=== PATIENT | female | born 1965 | race Hispanic/Latino ===

== ENCOUNTER 2021-08-13 03:07 | Inpatient (IN) | payer OTHER ==
[~2021-08-13] VITALS: Ht 152.4 cm; Wt 66.7 kg
[2021-08-13 03:35] LABS: BASOPHILS # (AUTO) 0.1 (0.0-0.1); BASOPHILS % 0.5 % (0.0-1.0); EOSINOPHILS % 0.2 % (0.0-6.0); HEMATOCRIT 44.3 % (34.2-44.1); HEMOGLOBIN 14.3 g/dL (12.0-16.0); LYMPHOCYTES # (AUTO) 1.6 (1.0-3.2); LYMPHOCYTES % 8.1 % (18.0-39.1); MEAN CORPUSCULAR HEMOGLOBIN 30.9 pg (28-32); MEAN CORPUSCULAR HGB CONC 32.3 g/dL (31-35); MEAN CORPUSCULAR VOLUME 95.7 fL (81-99); MONOCYTES # (AUTO) 0.7 (0.2-0.8); MONOCYTES % 3.6 % (4.4-11.3); NEUTROPHILS # (AUTO) 17.6 (2.1-6.9); NEUTROPHILS % 86.9 % (38.7-80.0); PLATELET COUNT 340 x10e3/uL (140-360); RED BLOOD COUNT 4.63 x10e6/uL (3.6-5.1); RED CELL DISTRIBUTION WIDTH 13.4 % (11.7-14.4)
[2021-08-13] MEDS ORDERED: DIGOXIN INJ 0.25 MG/ML 2 ML AMP IV ONE (03:45)
[2021-08-13 03:52] LABS: ALBUMIN 3.5 g/dL (3.5-5.0); ALBUMIN/GLOBULIN RATIO 0.9 (0.8-2.0); ANION GAP 20.7 mmol/L (8-16); CALCIUM 9.1 mg/dL (8.4-10.2); CREATININE, SERUM 0.87 mg/dL (0.57-1.11); POTASSIUM 3.7 mmol/L (3.5-5.1)
[2021-08-13] MEDS ORDERED: DIGOXIN INJ 0.25 MG/ML 2 ML AMP ONE (03:53)
[2021-08-13 03:59] LABS: B-TYPE NATRIURETIC PEPTIDE2 417.4 pg/mL (0-100); CREATINE KINASE MB 1.8 ng/mL (0-5.0)
[2021-08-13] MEDS ORDERED: CEFTRIAXONE 2 GM in SODIUM CHLORIDE 0.9% 100 ML IV ONE (04:00)
[2021-08-13] MEDS ORDERED: DEXAMETHASONE SOD PHOS 10 MG/1 ML VIAL IV ONE (04:00)
[2021-08-13 04:02] LABS: ABG PH 7.39 (7.35-7.45)
[2021-08-13 04:03] LABS: ABG HCO3 22 mmol/L (22-26); ABG PCO2 36 mmHg (35-45); ABG PO2 92 mmHg (80-105); ABG TCO2 23
[2021-08-13] MEDS ORDERED: DEXTROSE 50% SYRINGE 50 ML IV PRN (04:30)
[2021-08-13] MEDS ORDERED: ONDANSETRON HCL INJ 2MG/ML 2ML 2 MG/ML VIAL IV PRN (04:30)
[2021-08-13] MEDS ORDERED: SODIUM CHLORIDE FLUSH 10 ML SYR INJ PRN (04:30)
[2021-08-13] MEDS ORDERED: ACETAMINOPHEN 325 MG TAB PO PRN (04:30)
[2021-08-13] MEDS ORDERED: IOPAMIDOL 370 MG/ML 200 ML INFUS..BTL INJ ONE (05:43)
[2021-08-13] MEDS ORDERED: SODIUM CHLORIDE 0.9% 50ML 50 ML ONE (05:43)
[2021-08-13] MEDS: ASCORBIC ACID 500 MG TAB PO SCH ×2 (07:52→16:58)
[2021-08-13] MEDS: CEFTRIAXONE 2 GM in SODIUM CHLORIDE 0.9% 100 ML IV SCH (07:52)
[2021-08-13] MEDS: ZINC SULFATE 50 MG CAP PO SCH (07:52)
[2021-08-13] MEDS: DEXAMETHASONE SOD PHOS 10 MG/1 ML VIAL IV SCH (07:52)
[2021-08-13] MEDS: INSULIN REGULAR, HUMAN 100 UNIT/1 ML SQ SCH ×4 (07:58→20:52)
[2021-08-13] MEDS ORDERED: ENOXAPARIN SOD INJ 40 MG/0.4 ML SYR SC SCH (09:00)
[2021-08-13 09:09] LABS: BASOPHILS % 0.3 % (0.0-1.0); HEMOGLOBIN 13.7 g/dL (12.0-16.0); LYMPHOCYTES # (AUTO) 0.5 (1.0-3.2); LYMPHOCYTES % 3.4 % (18.0-39.1); MEAN CORPUSCULAR HEMOGLOBIN 30.8 pg (28-32); MEAN CORPUSCULAR HGB CONC 31.9 g/dL (31-35); MEAN CORPUSCULAR VOLUME 96.6 fL (81-99); MONOCYTES # (AUTO) 0.2 (0.2-0.8); MONOCYTES % 1.8 % (4.4-11.3); NEUTROPHILS # (AUTO) 12.5 (2.1-6.9); PLATELET COUNT 258 x10e3/uL (140-360); RED BLOOD COUNT 4.45 x10e6/uL (3.6-5.1); RED CELL DISTRIBUTION WIDTH 13.5 % (11.7-14.4)
[2021-08-13 09:39] LABS: ALBUMIN 3.2 g/dL (3.5-5.0); ANION GAP 14.7 mmol/L (8-16); CALCIUM 8.8 mg/dL (8.4-10.2); CREATININE, SERUM 0.75 mg/dL (0.57-1.11); POTASSIUM 3.7 mmol/L (3.5-5.1)
[2021-08-13] MEDS ORDERED: REMDESIVIR 100MG 200 MG in SODIUM CHLORIDE 0.9% 100 ML IV SCH (12:00)
[2021-08-13] MEDS ORDERED: GUAIFENESIN/CODEINE 5 ML LIQD PO PRN (15:30)
[2021-08-13] MEDS ORDERED: ASCORBIC ACID 500 MG TAB PO SCH (17:00)
[2021-08-13 18:18] LABS: CREATINE KINASE MB 18.3 ng/mL (0-5.0)
[2021-08-13] MEDS: ENOXAPARIN 30 MG/0.3 ML SYR SC SCH (20:51)
[2021-08-13] MEDS: INSULIN GLARGINE 100 UNITS/ML VIAL SQ SCH (20:52)
[2021-08-13] MEDS ORDERED: ZOLPIDEM TARTRATE 5 MG TAB PO PRN (21:00)
[2021-08-13 23:27] LABS: CREATINE KINASE MB 13.4 ng/mL (0-5.0)
[2021-08-14] VITALS (7 sets, daily range): BP systolic 112–142; BP diastolic 82–87
[2021-08-14 05:14] LABS: BASOPHILS # (AUTO) 0.1 (0.0-0.1); BASOPHILS % 0.6 % (0.0-1.0); EOSINOPHILS % 0.3 % (0.0-6.0); HEMATOCRIT 37.9 % (34.2-44.1); HEMOGLOBIN 12.1 g/dL (12.0-16.0); LYMPHOCYTES # (AUTO) 1.9 (1.0-3.2); LYMPHOCYTES % 18.4 % (18.0-39.1); MEAN CORPUSCULAR HEMOGLOBIN 30.6 pg (28-32); MEAN CORPUSCULAR HGB CONC 31.9 g/dL (31-35); MEAN CORPUSCULAR VOLUME 95.7 fL (81-99); MONOCYTES # (AUTO) 0.5 (0.2-0.8); MONOCYTES % 4.9 % (4.4-11.3); NEUTROPHILS # (AUTO) 7.9 (2.1-6.9); NEUTROPHILS % 75.4 % (38.7-80.0); PLATELET COUNT 217 x10e3/uL (140-360); RED BLOOD COUNT 3.96 x10e6/uL (3.6-5.1); RED CELL DISTRIBUTION WIDTH 13.4 % (11.7-14.4)
[2021-08-14 06:03] LABS: ALBUMIN 3.1 g/dL (3.5-5.0); ANION GAP 15.1 mmol/L (8-16); CALCIUM 9.2 mg/dL (8.4-10.2); CREATININE, SERUM 0.67 mg/dL (0.57-1.11); POTASSIUM 3.1 mmol/L (3.5-5.1)
[2021-08-14 06:47] LABS: CREATINE KINASE MB 6.9 ng/mL (0-5.0)
[2021-08-14] MEDS: INSULIN REGULAR, HUMAN 100 UNIT/1 ML SQ SCH ×4 (07:30→21:34)
[2021-08-14] MEDS ORDERED: SODIUM CHLORIDE 0.9% 250ML 250 ML ONE (08:11)
[2021-08-14] MEDS ORDERED: ZINC SULFATE 50 MG CAP PO SCH (09:00)
[2021-08-14] MEDS: DEXAMETHASONE SOD PHOS 10 MG/1 ML VIAL IV SCH (09:40)
[2021-08-14] MEDS: ZINC SULFATE 50 MG CAP PO SCH (09:40)
[2021-08-14] MEDS: CEFTRIAXONE 2 GM in SODIUM CHLORIDE 0.9% 100 ML IV SCH (09:40)
[2021-08-14] MEDS: ASPIRIN 81 MG ENTERIC COATED PO SCH (09:40)
[2021-08-14] MEDS: ENOXAPARIN 30 MG/0.3 ML SYR SC SCH ×2 (09:40→21:35)
[2021-08-14] MEDS: ASCORBIC ACID 500 MG TAB PO SCH ×2 (09:40→16:33)
[2021-08-14] MEDS ORDERED: POTASSIUM CHLORIDE 20 MEQ TAB CR PO ONE (10:00)
[2021-08-14 10:36] LABS: CHOL/HDL RATIO 6.1 (3.0-3.6)
[2021-08-14] MEDS: REMDESIVIR 100MG 100 MG in SODIUM CHLORIDE 0.9% 100 ML IV SCH (12:39)
[2021-08-14] MEDS: METOPROLOL TARTRATE 25 MG TAB PO SCH ×2 (12:39→16:33)
[2021-08-14] MEDS: INSULIN GLARGINE 100 UNITS/ML VIAL SQ SCH (21:35)
[2021-08-14] MEDS: ATORVASTATIN 40 MG TAB PO SCH (21:35)
[2021-08-15] VITALS (8 sets, daily range): BP systolic 123–138; BP diastolic 71–82
[2021-08-15] MEDS: AZITHROMYCIN 250 MG TAB PO SCH (06:09)
[2021-08-15 06:30] LABS: BASOPHILS # (AUTO) 0.1 (0.0-0.1); BASOPHILS % 0.5 % (0.0-1.0); EOSINOPHILS % 0.3 % (0.0-6.0); HEMATOCRIT 38.7 % (34.2-44.1); HEMOGLOBIN 12.2 g/dL (12.0-16.0); LYMPHOCYTES # (AUTO) 2.4 (1.0-3.2); LYMPHOCYTES % 21.7 % (18.0-39.1); MEAN CORPUSCULAR HEMOGLOBIN 30.7 pg (28-32); MEAN CORPUSCULAR HGB CONC 31.5 g/dL (31-35); MEAN CORPUSCULAR VOLUME 97.5 fL (81-99); MONOCYTES # (AUTO) 0.8 (0.2-0.8); MONOCYTES % 7.4 % (4.4-11.3); NEUTROPHILS # (AUTO) 7.7 (2.1-6.9); NEUTROPHILS % 69.6 % (38.7-80.0); PLATELET COUNT 229 x10e3/uL (140-360); RED BLOOD COUNT 3.97 x10e6/uL (3.6-5.1); RED CELL DISTRIBUTION WIDTH 13.3 % (11.7-14.4)
[2021-08-15 07:02] LABS: ALBUMIN 3.1 g/dL (3.5-5.0); ANION GAP 12.5 mmol/L (8-16); CREATININE, SERUM 0.57 mg/dL (0.57-1.11); POTASSIUM 3.5 mmol/L (3.5-5.1)
[2021-08-15] MEDS: INSULIN REGULAR, HUMAN 100 UNIT/1 ML SQ SCH ×4 (07:30→21:17)
[2021-08-15] MEDS: ASPIRIN 81 MG ENTERIC COATED PO SCH (09:21)
[2021-08-15] MEDS: DEXAMETHASONE SOD PHOS 10 MG/1 ML VIAL IV SCH (09:21)
[2021-08-15] MEDS: ZINC SULFATE 50 MG CAP PO SCH (09:21)
[2021-08-15] MEDS: ASCORBIC ACID 500 MG TAB PO SCH ×2 (09:21→17:18)
[2021-08-15] MEDS: ENOXAPARIN 30 MG/0.3 ML SYR SC SCH ×2 (09:21→21:09)
[2021-08-15] MEDS: METOPROLOL TARTRATE 25 MG TAB PO SCH ×2 (09:21→17:19)
[2021-08-15] MEDS: CEFTRIAXONE 2 GM in SODIUM CHLORIDE 0.9% 100 ML IV SCH (09:31)
[2021-08-15] MEDS: REMDESIVIR 100MG 100 MG in SODIUM CHLORIDE 0.9% 100 ML IV SCH (12:09)
[2021-08-15] MEDS: ATORVASTATIN 40 MG TAB PO SCH (21:09)
[2021-08-15] MEDS: INSULIN GLARGINE 100 UNITS/ML VIAL SQ SCH (21:18)
[2021-08-16 04:00] VITALS: BP 120/71
[2021-08-16] MEDS: AZITHROMYCIN 250 MG TAB PO SCH (05:54)
[2021-08-16] MEDS: INSULIN REGULAR, HUMAN 100 UNIT/1 ML SQ SCH ×4 (07:30→21:15)
[2021-08-16 08:10] LABS: BASOPHILS # (AUTO) 0.1 (0.0-0.1); BASOPHILS % 0.7 % (0.0-1.0); EOSINOPHILS % 0.2 % (0.0-6.0); HEMATOCRIT 38.9 % (34.2-44.1); HEMOGLOBIN 12.5 g/dL (12.0-16.0); LYMPHOCYTES # (AUTO) 2.4 (1.0-3.2); LYMPHOCYTES % 23.2 % (18.0-39.1); MEAN CORPUSCULAR HEMOGLOBIN 30.5 pg (28-32); MEAN CORPUSCULAR HGB CONC 32.1 g/dL (31-35); MEAN CORPUSCULAR VOLUME 94.9 fL (81-99); MONOCYTES # (AUTO) 0.7 (0.2-0.8); MONOCYTES % 6.4 % (4.4-11.3); NEUTROPHILS # (AUTO) 7.2 (2.1-6.9); NEUTROPHILS % 68.8 % (38.7-80.0); PLATELET COUNT 239 x10e3/uL (140-360); RED CELL DISTRIBUTION WIDTH 13.2 % (11.7-14.4)
[2021-08-16] MEDS: DEXAMETHASONE SOD PHOS 10 MG/1 ML VIAL IV SCH (08:23)
[2021-08-16] MEDS: ASPIRIN 81 MG ENTERIC COATED PO SCH (08:23)
[2021-08-16] MEDS: METOPROLOL TARTRATE 25 MG TAB PO SCH ×2 (08:23→17:31)
[2021-08-16] MEDS: ZINC SULFATE 50 MG CAP PO SCH (08:23)
[2021-08-16] MEDS: ASCORBIC ACID 500 MG TAB PO SCH ×2 (08:23→17:31)
[2021-08-16] MEDS: CEFTRIAXONE 2 GM in SODIUM CHLORIDE 0.9% 100 ML IV SCH (08:23)
[2021-08-16] MEDS: ENOXAPARIN 30 MG/0.3 ML SYR SC SCH ×2 (08:23→21:15)
[2021-08-16 08:29] VITALS: BP 139/87
[2021-08-16 08:30] LABS: ALBUMIN 3.3 g/dL (3.5-5.0); ALBUMIN/GLOBULIN RATIO 1.1 (0.8-2.0); ANION GAP 14.5 mmol/L (8-16); CALCIUM 9.1 mg/dL (8.4-10.2); CREATININE, SERUM 0.63 mg/dL (0.57-1.11); POTASSIUM 3.5 mmol/L (3.5-5.1)
[2021-08-16 11:39] VITALS: BP 116/77
[2021-08-16] MEDS: REMDESIVIR 100MG 100 MG in SODIUM CHLORIDE 0.9% 100 ML IV SCH (11:49)
[2021-08-16 15:35] VITALS: BP 136/81
[2021-08-16] MEDS ORDERED: ONDANSETRON HCL 4 MG ORAL DISINTEGRATING TAB SL PRN (17:15)
[2021-08-16 20:00] VITALS: BP 128/75
[2021-08-16] MEDS: ATORVASTATIN 40 MG TAB PO SCH (21:15)
[2021-08-16] MEDS: INSULIN GLARGINE 100 UNITS/ML VIAL SQ SCH (21:15)
[2021-08-16 23:44] VITALS: BP 129/65
[2021-08-17 00:06] VITALS: BP 129/65
[2021-08-17 04:00] VITALS: BP 128/64
[2021-08-17 07:14] LABS: BASOPHILS # (AUTO) 0.1 (0.0-0.1); BASOPHILS % 0.8 % (0.0-1.0); EOSINOPHILS % 0.4 % (0.0-6.0); HEMATOCRIT 39.5 % (34.2-44.1); HEMOGLOBIN 12.3 g/dL (12.0-16.0); LYMPHOCYTES # (AUTO) 3.2 (1.0-3.2); LYMPHOCYTES % 30.9 % (18.0-39.1); MEAN CORPUSCULAR HEMOGLOBIN 30.5 pg (28-32); MEAN CORPUSCULAR HGB CONC 31.1 g/dL (31-35); MONOCYTES # (AUTO) 0.8 (0.2-0.8); MONOCYTES % 7.4 % (4.4-11.3); NEUTROPHILS # (AUTO) 6.2 (2.1-6.9); NEUTROPHILS % 59.9 % (38.7-80.0); PLATELET COUNT 244 x10e3/uL (140-360); RED BLOOD COUNT 4.03 x10e6/uL (3.6-5.1); RED CELL DISTRIBUTION WIDTH 13.3 % (11.7-14.4)
[2021-08-17] MEDS: INSULIN REGULAR, HUMAN 100 UNIT/1 ML SQ SCH ×2 (07:30→11:30)
[2021-08-17 08:07] VITALS: BP 118/83
[2021-08-17 08:07] LABS: ALBUMIN 3.2 g/dL (3.5-5.0); ALBUMIN/GLOBULIN RATIO 1.1 (0.8-2.0); ANION GAP 15.6 mmol/L (8-16); CALCIUM 9.4 mg/dL (8.4-10.2); CREATININE, SERUM 0.61 mg/dL (0.57-1.11); POTASSIUM 3.6 mmol/L (3.5-5.1)
[2021-08-17 08:10] VITALS: BP 118/83
[2021-08-17] MEDS: ASCORBIC ACID 500 MG TAB PO SCH (08:59)
[2021-08-17] MEDS: ASPIRIN 81 MG ENTERIC COATED PO SCH (08:59)
[2021-08-17] MEDS: ENOXAPARIN 30 MG/0.3 ML SYR SC SCH (08:59)
[2021-08-17] MEDS: ZINC SULFATE 50 MG CAP PO SCH (08:59)
[2021-08-17] MEDS: METOPROLOL TARTRATE 25 MG TAB PO SCH (08:59)
[2021-08-17] MEDS: DEXAMETHASONE SOD PHOS 10 MG/1 ML VIAL IV SCH (08:59)
[2021-08-17 12:05] VITALS: BP 117/65
[2021-08-17] MEDS: REMDESIVIR 100MG 100 MG in SODIUM CHLORIDE 0.9% 100 ML IV SCH (12:13)
[2021-08-17] MEDS ORDERED: ZINC50 MG PO (14:12)
[2021-08-17] MEDS ORDERED: ASPIRIN EC81 MG PO (14:12)
[2021-08-17] MEDS ORDERED: DEXAMETHASONE4 MG PO (14:12)
[2021-08-17] MEDS ORDERED: LIPITOR20 MG PO (14:12)
[2021-08-17] MEDS ORDERED: LOPRESSOR25 MG PO (14:12)
[2021-08-17] MEDS ORDERED: VITAMIN C1000 MG PO (14:12)
[2021-08-18] MEDS ORDERED: BACITRACIN ZINC 15 GM OINT TOP SCH (09:00)
== END 2021-08-17 15:00 | disposition home or self-care (01) | DRG 177 ==
LOC: ER 03:14 → ERHOLD 04:25 → IMCU 08-14 07:34
PROVIDERS: ADMIT Internal Medicine; ATTEND Internal Medicine
PROC: 3E0333Z Introduction of Anti-inflammatory into Peripheral Vein, Percutaneous Approach (ICD-10-PCS; principal; 2021-08-13)
PROC: XW033E5 Introduction of Remdesivir Anti-infective into Peripheral Vein, Percutaneous Approach, New Technology Group 5 (ICD-10-PCS; 2021-08-13)
DX: U07.1 COVID-19 (principal); J12.82 Pneumonia due to coronavirus disease 2019; J96.01 Acute respiratory failure with hypoxia; I21.A1 Myocardial infarction type 2; E87.2 Acidosis; E11.9 Type 2 diabetes mellitus without complications; F17.210 Nicotine dependence, cigarettes, uncomplicated; I10 Essential (primary) hypertension; I48.91 Unspecified atrial fibrillation; E66.9 Obesity, unspecified; Z68.28 Body mass index [BMI] 28.0-28.9, adult; Z79.82 Long term (current) use of aspirin
CPT/HCPCS: 36415; 36600; 71045; 71260; 80053; 80061; 82550; 82553; 82805; 82948; 83605; 83735; 83880; 84484; 85025; 85379; 86141; 87040; 87071; 87205; 93005; 93306; 94799; 96372; 99251; 99285; J0248; J0456; J0696; J1100; J1160; J1650; J1815; J1817; J2405; J7050; Q9967; U0002

== ENCOUNTER 2024-11-29 12:01 | Emergency (ER) | payer OTHER ==
[~2024-11-29] VITALS: Ht 152.4 cm; Wt 66.7 kg
[~2024-11-29 12:01] MED LIST: ASPIRIN EC81 MG PO; DEXAMETHASONE4 MG PO; LIPITOR20 MG PO; LOPRESSOR25 MG PO; VITAMIN C1000 MG PO; ZINC50 MG PO
[2024-11-29 12:10] VITALS: PULSE 84; RESP 16; TEMP 97.8; O2SAT 99
== END 2024-11-29 13:04 | disposition home or self-care (01) ==
LOC: ER 12:45
DX: I73.9 Peripheral vascular disease, unspecified (principal); I70.8 Atherosclerosis of other arteries; I10 Essential (primary) hypertension; E11.9 Type 2 diabetes mellitus without complications; F17.210 Nicotine dependence, cigarettes, uncomplicated
CPT/HCPCS: 99282